=== PATIENT | female | born 1945 | race Caucasian/White ===

== ENCOUNTER 2016-11-25 14:21 | Inpatient (IN) | payer OTHER ==
[~2016-11-25] VITALS: Ht 165.1 cm; Wt 69.1 kg
[2016-11-25] MEDS ORDERED: OLAN1TAB9 PO (15:01)
[2016-11-25] MEDS ORDERED: SODIUM CHLORIDE 0.9% 500ML 500 ML IV STA ×2 (15:35→19:20)
[2016-11-25 16:28] LABS: BASO % 0.1 %; BASO ABS # 0.01 K/uL (0-0.2); COMPLETE YES; EOS % 0.1 %; HEMATOCRIT 45.4 % (37-47); IG% 0.3 %; LYMPH % 3.7 %; LYMPH ABS # 0.52 K/uL (1.2-3.4); MEAN CELL VOLUME 92.1 fL (80-100); MEAN CORPUSCULAR HEMOGLOBIN 30.2 pg (25-34); MEAN CORPUSCULAR HGB CONC 32.8 g/dl (32-36); MONO % 7.5 %; NEUT % 88.3 %; PLATELET COUNT 317 K/uL (130-400); RED BLOOD COUNT 4.93 M/uL (4.2-5.4); WHITE BLOOD COUNT 14.16 K/uL (4.8-10.8)
--- NOTE | 2016-11-25 16:38 | DIAGNOSTIC IMAGING REPORT ---
CT OF THE HEAD WITHOUT CONTRAST CLINICAL HISTORY: Altered mental status status post fall. COMPARISON STUDY: No previous studies for comparison. CT DOSE: 918.33 mGy.cm TECHNIQUE: Helical axial images of the head were obtained without IV contrast. Automated exposure control was utilized for the study. FINDINGS: No acute intracranial hemorrhage, midline shift or mass effect is present. Brain volume is normal for age. The exam is mildly compromised by motion artifact. Ventricular system is normal. The basilar cisterns are patent. There are no extra axial collections. There are no findings to suggest acute dural sinus thrombosis or acute territorial infarct. There are no calvarial fractures. IMPRESSION: 1. No acute intracranial findings. 2. No calvarial fracture. Electronically signed by: Kishore Sandy M.D. 11/25/2016 4:37 PM Dictated Date/Time: 11/25/2016 4:32 PM
[2016-11-25 16:47] LABS: ALT/SGPT 36 U/L (12-78); BLOOD UREA NITROGEN 22 mg/dl (7-18); BUN/CREATININE RATIO 32.4 (10-20); CARBON DIOXIDE 21 mmol/L (21-32); CHLORIDE 102 mmol/L (98-107); CREATININE 0.67 mg/dl (0.60-1.20); GLUCOSE 99 mg/dl (70-99); POTASSIUM 3.5 mmol/L (3.5-5.1); SODIUM 138 mmol/L (136-145)
[2016-11-25 16:52] LABS: ALB/GLOB RATIO 0.7 (0.9-2); ALKALINE PHOSPHATASE 278 U/L (45-117); AST/SGOT 24 U/L (15-37)
[2016-11-25 17:52] LABS: CALCIUM 9.3 mg/dl (8.5-10.1)
--- NOTE | 2016-11-25 18:25 | DIAGNOSTIC IMAGING REPORT ---
PELVIS 1 OR 2 VIEW ROUTINE, LEFT FEMUR 2 VIEWS ROUTINE CLINICAL HISTORY: L hip pain/LBP from fall 9d ago COMPARISON STUDY: None. FINDINGS: Nondisplaced fracture within the medial aspect of the left pubic bones. The sacrum appears intact. No additional fractures identified within the pelvis, hips, left femur. Mild osteoarthritis within the bilateral hips. Lucency overlying the intertrochanteric region of the left femur appears to represent a skin fold. IMPRESSION: Nondisplaced fracture within the medial left pubic bones. No definite fracture within the left femur. Electronically signed by: Tyler Rosario M.D. 11/25/2016 6:23 PM Dictated Date/Time: 11/25/2016 6:20 PM
--- NOTE | 2016-11-25 18:27 | DIAGNOSTIC IMAGING REPORT ---
LUMBAR SPINE 5 VIEWS HISTORY: Fall. Low back pain. COMPARISON: None. FINDINGS: There is no fracture. No subluxation. Mild disc space narrowing at L5-S1. Moderate facet degenerative changes within the lower lumbar spine. IMPRESSION: No fracture or subluxation within the lumbar spine. Electronically signed by: Tyler Rosario M.D. 11/25/2016 6:26 PM Dictated Date/Time: 11/25/2016 6:23 PM
--- NOTE | 2016-11-25 18:29 | DIAGNOSTIC IMAGING REPORT ---
CHEST ONE VIEW PORTABLE HISTORY: weakness w/ fall COMPARISON: None. FINDINGS: The lungs are clear. Cardiac silhouette is normal in size. No pleural effusions. No pneumothorax. IMPRESSION: No acute process. Electronically signed by: Tyler Rosario M.D. 11/25/2016 6:28 PM Dictated Date/Time: 11/25/2016 6:27 PM
--- NOTE | 2016-11-25 19:21 | EMERGENCY ROOM VISIT NOTE ---
ED Visit Note First contact with patient: 15:10 Patient was seen by our PA/APPLIANCE COUNSELOR. I was involved in the patient's care and did evaluate the patient myself. I was involved in the care throughout the ER stay. Patient presents after falling several days ago, she has a pelvic fracture which I suspect is nonsurgical. Orthopedics is being consulted. The patient will very likely require rehabilitation.
--- NOTE | 2016-11-25 19:44 | EMERGENCY ROOM VISIT NOTE ---
History First contact with patient: 15:10 Chief Complaint: FALL Stated Complaint: FALL History of Present Illness The patient is a 71 year old female who presents to the Emergency Room via BLS ambulance with complaints of left hip/thigh pain. The patient reports that she slipped and fell 9 days ago, landing on her left buttock. She did not have any significant pain from the first 3 days after the fall, but now reports significant pain with any attempted weightbearing. The patient lives alone. She does have a sludge control operator who visited her today and noticed that she seemed in significant distress. He sludge control operator reported that she seemed confused and was stuttering. The patient reports that she has been drinking fluids, and has eaten food that was close to her. She otherwise reports poor oral intake since the fall. The patient currently denies any chest pain, shortness of breath, neck pain or abdominal pain. Weightbearing worsens her discomfort to a 9 out of 10, and currently rates her discomfort a 5 out of 10 on my interview. Review of Systems HEENT: Denies dizziness, visual problems, hearing loss, tinnitus. Denies difficulty swallowing or oral lesions. PULMONARY: Denies cough, shortness of breath, sputum production or hemoptysis. CARDIOVASCULAR: Denies chest pain, palpitations, dyspnea on exertion, orthopnea or peripheral edema. GASTROINTESTINAL: Denies diarrhea, constipation, nausea, vomiting, or abdominal pain. GENITOURINARY: Denies dysuria, frequency, urgency or nocturia. NEUROLOGIC: Denies history of epilepsy, CVA, TIA or chronic headaches. MUSCULOSKELETAL: Denies history of joint tenderness/swelling. SKIN: Denies rashes or lesions. PSYCHIATRIC: Denies history of depression or mental illness. ENDOCRINE: Denies history of diabetes or thyroid disorders. Past Medical/Surgical History Medical Problems: (1) Mental Retardation Nos (2) Orofacial Dyskinesia (3) Psychosis Nos Surgical Problems: (1) No history of previous surgery Family History Unknown Social History Smoking Status: Former Smoker Alcohol Use: none Marital Status: Housing Status: lives alone Occupation Status: retired Current/Historical Medications Scheduled Olanzapine (Zyprexa), 5 MG PO HS Allergies Coded Allergies: No Known Allergies (Unverified , 11/25/16) Physical Exam Vital Signs Date Time Temp Pulse Resp B/P (MAP) Pulse Ox O2 Delivery O2 Flow Rate FiO2 11/25/16 20:01 105 17 145/90 99 Room Air 11/25/16 18:59 97 17 125/88 95 Room Air 11/25/16 17:19 97 17 114/81 99 Room Air 11/25/16 16:24 101 17 118/81 96 Room Air 11/25/16 14:42 37.3 105 17 121/86 96 Room Air Physical Exam CONSTITUTIONAL: Healthy and well nourished. Alert and oriented X 3 with positive affect. GCS 15. Patient does not appear in any acute distress. HEENT: Normocephalic, atraumatic. Pupils equal, round and reactive. Ears and nares are clear. No scleral icterus or conjunctival pallor. No evidence for previous epistaxis, subconjunctival hemorrhage, hemotympanum, raccoon's eyes or Lucero sign. OROPHARYNX: Mucous membranes are dry. NECK: Full active range of motion without discomfort. RESPIRATORY: Clear to auscultation bilaterally with no wheezing, crackles, rhonchi or stridor. CARDIOVASCULAR: Regular rate and rhythm with no murmurs, rubs or gallops. GASTROINTESTINAL: Bowel sounds present in all quadrants. Soft and nontender to palpation. MUSCULOSKELETAL: Examination shows minimal discomfort with internal or external rotation of the hip. Negative straight leg raise. She has mild tenderness to palpation through the lower lumbar spine. Pelvis stable with rock. Pedal pulses are intact. The patient has no additional tenderness to palpation through the ribs or thoracic spine. INTEGUMENTARY: No rash or other significant dermatologic conditions noted. HEMATOLOGIC: No ecchymosis or petechiae noted. NEUROLOGIC: No focal neurologic deficits noted. Medical Decision & Procedures ER Provider Diagnostic Interpretation: My interpretation of an ECG shows a sinus tachycardia of [address] elevation or other conduction abnormalities noted. My interpretation of pelvis and left femur x-rays shows a nondisplaced fracture of the medial pelvic bones, adjacent to the symphysis pubis. No other additional fractures are appreciated of the proximal femur or hip region. Chest x-ray and lumbar spine x-ray were also normal. Noncontrast CT of the head does not show any intracranial bleed, midline shift or mass effect. Radiologist reports were also reviewed. Laboratory Results 11/25/16 16:10 Red Blood Count 4.93, Mean Corpuscular Volume 92.1, Mean Corpuscular Hemoglobin 30.2, Mean Corpuscular Hemoglobin Concent 32.8, Mean Platelet Volume 10.0, Neutrophils (%) (Auto) 88.3, Lymphocytes (%) (Auto) 3.7, Monocytes (%) (Auto) 7.5, Eosinophils (%) (Auto) 0.1, Basophils (%) (Auto) 0.1, Neutrophils # (Auto) 12.51, Lymphocytes # (Auto) 0.52, Monocytes # (Auto) 1.06, Eosinophils # (Auto) 0.02, Basophils # (Auto) 0.01 11/25/16 16:10 Test 11/25/16 16:10 White Blood Count 14.16 K/uL (4.8-10.8) Red Blood Count 4.93 M/uL (4.2-5.4) Hemoglobin 14.9 g/dL (12.0-16.0) Hematocrit 45.4 % (37-47) Mean Corpuscular Volume 92.1 fL (80-100) Mean Corpuscular Hemoglobin 30.2 pg (25-34) Mean Corpuscular Hemoglobin Concent 32.8 g/dl (32-36) Platelet Count 317 K/uL (130-400) Mean Platelet Volume 10.0 fL (7.4-10.4) Neutrophils (%) (Auto) 88.3 % Lymphocytes (%) (Auto) 3.7 % Monocytes (%) (Auto) 7.5 % Eosinophils (%) (Auto) 0.1 % Basophils (%) (Auto) 0.1 % Neutrophils # (Auto) 12.51 K/uL (1.4-6.5) Lymphocytes # (Auto) 0.52 K/uL (1.2-3.4) Monocytes # (Auto) 1.06 K/uL (0.11-0.59) Eosinophils # (Auto) 0.02 K/uL (0-0.5) Basophils # (Auto) 0.01 K/uL (0-0.2) RDW Standard Deviation 45.1 fL (36.4-46.3) RDW Coefficient of Variation 13.5 % (11.5-14.5) Immature Granulocyte % (Auto) 0.3 % Immature Granulocyte # (Auto) 0.04 K/uL (0.00-0.02) Anion Gap 15.0 mmol/L (3-11) Est Creatinine Clear Calc Drug Dose 75.2 ml/min Estimated GFR () 102.5 Estimated GFR (Non- 88.4 BUN/Creatinine Ratio 32.4 (10-20) Calcium Level 9.3 mg/dl (8.5-10.1) Total Bilirubin 1.3 mg/dl (0.2-1) Aspartate Amino Transf (AST/SGOT) 24 U/L (15-37) Alanine Aminotransferase (ALT/SGPT) 36 U/L (12-78) Alkaline Phosphatase 278 U/L (45-117) Troponin I < 0.015 ng/ml (0-0.045) Total Protein 7.0 gm/dl (6.4-8.2) Albumin 2.9 gm/dl (3.4-5.0) Globulin 4.1 gm/dl (2.5-4.0) Albumin/Globulin Ratio 0.7 (0.9-2) The above labs were reviewed Medications Administered Medications (Trade) Dose Ordered Sig/Марина Route Start Time Stop Time Status Last Admin Dose Admin Sodium Chloride 500 ml @ 999 mls/hr Q31M STAT IV 11/25/16 15:35 11/25/16 16:05 DC 11/25/16 16:18 999 MLS/HR Sodium Chloride 500 ml @ 999 mls/hr Q31M STAT IV 11/25/16 19:20 11/25/16 19:50 DC 11/25/16 19:30 999 MLS/HR ED Course Patient history and physical exam were performed. Nurse's notes were reviewed. Vital signs were reviewed, showing a mild tachycardia of 105 bpm. The patient is otherwise afebrile and normotensive. O2 saturation is 96% on room air. The patient does not appear in any acute distress, and refused any analgesics while in the emergency department. IV access was established and labs were drawn. The patient was initially hydrated with a normal saline 500 mL bolus. Labs were reviewed to show a mild leukocytosis with left shift and bandemia. BUN is slightly elevated at 22 with a normal creatinine. Total bilirubin and alkaline phosphatase are also elevated with normal LFTs. Troponin is normal. The patient was unable to provide a urine sample, but denies any recent urinary symptoms or overt weakness. Noncontrast CT of the head, along with chest x-ray and lumbar spine x-ray were normal. X-rays of the pelvis and left femur confirms a nondisplaced medial pelvic fracture. Attempted trial ambulation was not successful. The patient was able to business intelligence manager one place, but could not ambulate without significant pain or problems with balance secondary to pain. The case was then further discussed with Dr. Thomas, ED attending physician, who agrees with current workup, and suggest orthopedic consultation and possible referral for rehabilitation. The case was also discussed with our [employer] Specialist who suggested [facility] rehabilitation. I also discussed the case with Dr. Aguilar, orthopedic surgeon on-call, who also reviewed x-rays and indicated that this is a nonsurgical fracture. His office would be happy to follow-up with the patient in one week. The patient was provided a regular diet tray and oral fluids while awaiting [facility] approval. The patient was administered an additional normal saline 500 mL bolus. The case was reviewed by the [facility] physician, Dr. Mandel, who refused transfer of care, recommending additional workup and CT of the pelvis/hip region. At this point, the case was discussed with Dr. Rachel, [facility] hospitalist, for further evaluation of the patient. Please see his dictation for further treatment and final disposition. Medical Decision This patient appears to have suffered a mechanical fall 9 days ago, and now has significant difficulty with ambulation secondary to left hip pain. Her x-rays today shows a nondisplaced left pelvic fracture. Remaining imaging studies today are normal, and not suggestive of acute lumbar or left hip fracture. Additional studies today are not suggestive of cardiopulmonary etiology. The patient denies any other injuries from her fall. Noncontrast CT of the head does not show any evidence for intracranial bleed. Impression Primary Impression: Fracture of left pelvis Additional Impression: Fall in home Departure Information Referrals No Doctor, Assigned (PCP) Patient Instructions [facility] Problem Qualifiers Primary Impression: Fracture of left pelvis Encounter type: initial encounter Pelvic bone location: pubis Sublocation of pubis: other portion of pubis Fracture type: closed Qualified Codes: S32.592A - Other specified fracture of left pubis, initial encounter for closed fracture Additional Impression: Fall in home Encounter type: initial encounter Qualified Codes: W19.XXXA - Unspecified fall, initial encounter; Y92.099 - Unspecified place in other non-institutional residence as the place of occurrence of the external cause
--- NOTE | 2016-11-25 21:59 | History and Physical ---
History & Physical Date & Time of Service: Nov 25, 2016 at 21:59 Chief Complaint: FALL Primary Care Physician: No Doctor, Assigned History of Present Illness Source: patient The patient is a 71-year-old female who presents to the emergency Department via BLS after reporting slipping and falling at home 9 days prior to arrival, in which she landed on her left buttock and then 3 days later developed the first onset of left groin pain, which has continually worsened since that time. Any time she attempts to bear weight she has severe pain and is unable to walk. The patient lives alone, and a textile knitter who visited her today advised she go to the emergency department for assessment. The patient reports poor oral intake since the fall due to having no appetite. Social History Smoking Status: Former Smoker Smokeless Tobacco Use: No Alcohol Use: none Drug Use: none Marital Status: Housing status: lives alone Occupational Status: retired Multi-Drug Resistant Organisms History of MDRO: No Allergies Coded Allergies: No Known Allergies (Unverified , 11/25/16) Home Medications Scheduled Olanzapine (Zyprexa), 5 MG PO HS Review of Systems The patient denies chest pain, palpitations, shortness of breath, cough, lower extremity swelling, vision change, hearing change, sore throat, fevers, chills, sweats, weight change, fatigue, nausea, vomiting, abdominal pain, blood in urine or stool, dysuria, urinary frequency or urgency, lightheadedness, dizziness, headache, memory loss, rash, abnormal bruising or bleeding, generalized weakness, numbness or tingling in arms or legs, arthralgias or myalgias, back or neck pain, night sweats. The review of systems is otherwise negative other than for that already noted above, and at least 10 systems have been reviewed. Physical Exam Vital Signs Date Time Temp Pulse Resp B/P (MAP) Pulse Ox O2 Delivery O2 Flow Rate FiO2 11/25/16 21:42 101 17 138/88 99 Room Air 11/25/16 20:01 105 17 145/90 99 Room Air 11/25/16 18:59 97 17 125/88 95 Room Air 11/25/16 17:19 97 17 114/81 99 Room Air 11/25/16 16:24 101 17 118/81 96 Room Air 11/25/16 14:42 37.3 105 17 121/86 96 Room Air The patient is awake, well-developed and adequately nourished, alert and oriented 3, normocephalic and atraumatic, lying in bed and in no acute distress. HEENT--PERRL, EOMI, mucous membranes and oropharynx dry. Neck--supple, no JVD or bruits, thyroid normal, trachea midline, no adenopathy. Heart--normal S1 and S2, no extra beats, no murmurs, rubs or gallops. Lungs--clear bilaterally with good air movement, no respiratory distress, no accessory muscle use. Abdomen--normal bowel sounds and soft, nontender and nondistended, no hernias or masses, no organomegaly. Extremities--no cyanosis, clubbing or edema. There are good distal pulses b/l. Dermatologic--normal skin turgor, normal color, warm and dry, no abnormal lymph nodes, no rash. Neurologic--cranial nerves II through XII grossly intact, motor and sensory examination normal. Rheumatologic--pain with decreased range of motion left groin and hip. Psychiatric--normal affect. Diagnostics Laboratory Results Results Past 24 Hours Test 11/25/16 16:10 Range/Units White Blood Count 14.16 4.8-10.8 K/uL Red Blood Count 4.93 4.2-5.4 M/uL Hemoglobin 14.9 12.0-16.0 g/dL Hematocrit 45.4 37-47 % Mean Corpuscular Volume 92.1 80-100 fL Mean Corpuscular Hemoglobin 30.2 25-34 pg Mean Corpuscular Hemoglobin Concent 32.8 32-36 g/dl Platelet Count 317 130-400 K/uL Mean Platelet Volume 10.0 7.4-10.4 fL Neutrophils (%) (Auto) 88.3 % Lymphocytes (%) (Auto) 3.7 % Monocytes (%) (Auto) 7.5 % Eosinophils (%) (Auto) 0.1 % Basophils (%) (Auto) 0.1 % Neutrophils # (Auto) 12.51 1.4-6.5 K/uL Lymphocytes # (Auto) 0.52 1.2-3.4 K/uL Monocytes # (Auto) 1.06 0.11-0.59 K/uL Eosinophils # (Auto) 0.02 0-0.5 K/uL Basophils # (Auto) 0.01 0-0.2 K/uL RDW Standard Deviation 45.1 36.4-46.3 fL RDW Coefficient of Variation 13.5 11.5-14.5 % Immature Granulocyte % (Auto) 0.3 % Immature Granulocyte # (Auto) 0.04 0.00-0.02 K/uL Sodium Level 138 136-145 mmol/L Potassium Level 3.5 3.5-5.1 mmol/L Chloride Level 102 98-107 mmol/L Carbon Dioxide Level 21 21-32 mmol/L Anion Gap 15.0 3-11 mmol/L Blood Urea Nitrogen 22 7-18 mg/dl Creatinine 0.67 0.60-1.20 mg/dl Est Creatinine Clear Calc Drug Dose 75.2 ml/min Estimated GFR () 102.5 Estimated GFR (Non- 88.4 BUN/Creatinine Ratio 32.4 10-20 Random Glucose 99 70-99 mg/dl Calcium Level 9.3 8.5-10.1 mg/dl Total Bilirubin 1.3 0.2-1 mg/dl Aspartate Amino Transf (AST/SGOT) 24 15-37 U/L Alanine Aminotransferase (ALT/SGPT) 36 12-78 U/L Alkaline Phosphatase 278 45-117 U/L Troponin I < 0.015 0-0.045 ng/ml Total Protein 7.0 6.4-8.2 gm/dl Albumin 2.9 3.4-5.0 gm/dl Globulin 4.1 2.5-4.0 gm/dl Albumin/Globulin Ratio 0.7 0.9-2 Diagnostic Radiology Patient Name: PHILLIP FERRER Unit Number: [id number] Dictated: 11/25/161819 Transcribed: 11/25/161819 [facility] Printed Date/Time: [~ rep prt dt]/[~ rep prt tm] [~ rep ct labl] - [~ rep ct ivnm] [facility] [place] [address] Dictated: 11/25/161819 Transcribed: 11/25/161819 [facility] Printed Date/Time: [~ rep prt dt]/[~ rep prt tm] [~ rep ct labl] - [~ rep ct ivnm] [~ rep ct add3]] PELVIS 1 OR 2 VIEW ROUTINE, LEFT FEMUR 2 VIEWS ROUTINE CLINICAL HISTORY: L hip pain/LBP from fall 9d ago COMPARISON STUDY: None. FINDINGS: Nondisplaced fracture within the medial aspect of the left pubic bones. The sacrum appears intact. No additional fractures identified within the pelvis, hips, left femur. Mild osteoarthritis within the bilateral hips. Lucency overlying the intertrochanteric region of the left femur appears to represent a skin fold. IMPRESSION: Nondisplaced fracture within the medial left pubic bones. No definite fracture within the left femur. Electronically signed by: Tyler Rosario M.D. 11/25/2016 6:23 PM Dictated Date/Time: 11/25/2016 6:20 PM The status of this report is Signed. Draft = Not yet reviewed or approved by Radiologist. Signed = Reviewed and approved by Radiologist. <AttendingPhy></AttendingPhy> <FamilyPhy>No Doctor, Assigned</FamilyPhy> < PrimaryPhy>No Doctor, Assigned</PrimaryPhy> <UnitNumber>[id number]</UnitNumber> <VisitNumber>[id number]</VisitNumber> <PatientName>NABILPHILLIP HERNANDEZ</PatientName > <DateOfBirth>1945</DateOfBirth> <Location>[facility]</Location> <ServiceDate> 11/25/16</ServiceDate> <MNE>ESINDI</MNE> <OrderingPhy>Maurice Mishra</ OrderingPhy> <OrderingPhyMNE>f rep ord dr kamara</OrderingPhyMNE> <DictatingPhyMNE> f rep dict dr kamara</DictatingPhyMNE> <CCListMNE>f rep ct mne</CCListMNE> < AdmittingPhyMNE>f pt admit dr kamara</AdmittingPhyMNE> <AttendingPhyMNE>f pt attend dr kamara</AttendingPhyMNE> <ConsultingPhyMNE>f pt consult dr kamara</ConsultingPhyMNE> <FamilyPhyMNE>f pt fam dr kamara</FamilyPhyMNE> <OtherPhyMNE>f pt other dr kamara</OtherPhyMNE> < PrimaryPhyMNE>f pt prim care dr kamara</PrimaryPhyMNE> <ReferringPhyMNE>f pt referring dr kamara</ReferringPhyMNE> Patient Name: PHILLIP FERRER Unit Number: [id number] Dictated: 11/25/161822 Transcribed: 11/25/161822 [facility] Printed Date/Time: [~ rep prt dt]/[~ rep prt tm] [~ rep ct labl] - [~ rep ct ivnm] [facility] [place] [address] Dictated: 11/25/161822 Transcribed: 11/25/161822 [facility] Printed Date/Time: [~ rep prt dt]/[~ rep prt tm] [~ rep ct labl] - [~ rep ct ivnm] [~ rep ct add3]] LUMBAR SPINE 5 VIEWS HISTORY: Fall. Low back pain. COMPARISON: None. FINDINGS: There is no fracture. No subluxation. Mild disc space narrowing at L5-S1. Moderate facet degenerative changes within the lower lumbar spine. IMPRESSION: No fracture or subluxation within the lumbar spine. Electronically signed by: Tyler Rosario M.D. 11/25/2016 6:26 PM Dictated Date/Time: 11/25/2016 6:23 PM The status of this report is Signed. Draft = Not yet reviewed or approved by Radiologist. Signed = Reviewed and approved by Radiologist. <AttendingPhy></AttendingPhy> <FamilyPhy>No Doctor, Assigned</FamilyPhy> < PrimaryPhy>No Doctor, Assigned</PrimaryPhy> <UnitNumber>[id number]</UnitNumber> <VisitNumber>[id number]</VisitNumber> <PatientName>PHILLIP FERRER</PatientName > <DateOfBirth>1945</DateOfBirth> <Location>[facility]</Location> <ServiceDate> 11/25/16</ServiceDate> <MNE>ESINDI</MNE> <OrderingPhy>Maurice Mishra</ OrderingPhy> <OrderingPhyMNE>f rep ord dr kamara</OrderingPhyMNE> <DictatingPhyMNE> f rep dict dr kamara</DictatingPhyMNE> <CCListMNE>f rep ct mne</CCListMNE> < AdmittingPhyMNE>f pt admit dr kamara</AdmittingPhyMNE> <AttendingPhyMNE>f pt attend dr kamara</AttendingPhyMNE> <ConsultingPhyMNE>f pt consult dr kamara</ConsultingPhyMNE> <FamilyPhyMNE>f pt fam dr kamara</FamilyPhyMNE> <OtherPhyMNE>f pt other dr kamara</OtherPhyMNE> < PrimaryPhyMNE>f pt prim care dr kamara</PrimaryPhyMNE> <ReferringPhyMNE>f pt referring dr kamara</ReferringPhyMNE> Patient Name: PHILLIP FERRER Unit Number: [id number] Dictated: 11/25/161631 Transcribed: 11/25/161631 [facility] Printed Date/Time: [~ rep prt dt]/[~ rep prt tm] [~ rep ct labl] - [~ rep ct ivnm] [facility] Radiology Department [place], [place] [id number] Dictated: 11/25/161631 Transcribed: 11/25/161631 [facility] Printed Date/Time: [~ rep prt dt]/[~ rep prt tm] [~ rep ct labl] - [~ rep ct ivnm] [~ rep ct add3]] CT OF THE HEAD WITHOUT CONTRAST CLINICAL HISTORY: Altered mental status status post fall. COMPARISON STUDY: No previous studies for comparison. CT DOSE: 918.33 mGy.cm TECHNIQUE: Helical axial images of the head were obtained without IV contrast. Automated exposure control was utilized for the study. FINDINGS: No acute intracranial hemorrhage, midline shift or mass effect is present. Brain volume is normal for age. The exam is mildly compromised by motion artifact. Ventricular system is normal. The basilar cisterns are patent. There are no extra axial collections. There are no findings to suggest acute dural sinus thrombosis or acute territorial infarct. There are no calvarial fractures. IMPRESSION: 1. No acute intracranial findings. 2. No calvarial fracture. Electronically signed by: Kishore Sandy M.D. 11/25/2016 4:37 PM Dictated Date/Time: 11/25/2016 4:32 PM The status of this report is Signed. Draft = Not yet reviewed or approved by Radiologist. Signed = Reviewed and approved by Radiologist. <AttendingPhy></AttendingPhy> <FamilyPhy>No Doctor, Assigned</FamilyPhy> < PrimaryPhy>No Doctor, Assigned</PrimaryPhy> <UnitNumber>[id number]</UnitNumber> <VisitNumber>[id number]</VisitNumber> <PatientName>PHILLIP FERRER</PatientName > <DateOfBirth>1945</DateOfBirth> <Location>[facility]</Location> <ServiceDate> 11/25/16</ServiceDate> <MNE>ESINDI</MNE> <OrderingPhy>Maurice Mishra</ OrderingPhy> <OrderingPhyMNE>f rep ord dr kamara</OrderingPhyMNE> <DictatingPhyMNE> f rep dict dr kamara</DictatingPhyMNE> <CCListMNE>f rep ct mne</CCListMNE> < AdmittingPhyMNE>f pt admit dr kamara</AdmittingPhyMNE> <AttendingPhyMNE>f pt attend dr kamara</AttendingPhyMNE> <ConsultingPhyMNE>f pt consult dr kamara</ConsultingPhyMNE> <FamilyPhyMNE>f pt fam dr kamara</FamilyPhyMNE> <OtherPhyMNE>f pt other dr kamara</OtherPhyMNE> < PrimaryPhyMNE>f pt prim care dr kamara</PrimaryPhyMNE> <ReferringPhyMNE>f pt referring dr kamara</ReferringPhyMNE> Patient Name: PHILLIP FERRER Unit Number: [id number] Dictated: 11/25/161819 Transcribed: 11/25/161819 [facility] Printed Date/Time: [~ rep prt dt]/[~ rep prt tm] [~ rep ct labl] - [~ rep ct ivnm] [facility] [place] [address] Dictated: 11/25/161819 Transcribed: 11/25/161819 [facility] Printed Date/Time: [~ rep prt dt]/[~ rep prt tm] [~ rep ct labl] - [~ rep ct ivnm] [~ rep ct add3]] PELVIS 1 OR 2 VIEW ROUTINE, LEFT FEMUR 2 VIEWS ROUTINE CLINICAL HISTORY: L hip pain/LBP from fall 9d ago COMPARISON STUDY: None. FINDINGS: Nondisplaced fracture within the medial aspect of the left pubic bones. The sacrum appears intact. No additional fractures identified within the pelvis, hips, left femur. Mild osteoarthritis within the bilateral hips. Lucency overlying the intertrochanteric region of the left femur appears to represent a skin fold. IMPRESSION: Nondisplaced fracture within the medial left pubic bones. No definite fracture within the left femur. Electronically signed by: Tyler Rosario M.D. 11/25/2016 6:23 PM Dictated Date/Time: 11/25/2016 6:20 PM The status of this report is Signed. Draft = Not yet reviewed or approved by Radiologist. Signed = Reviewed and approved by Radiologist. <AttendingPhy></AttendingPhy> <FamilyPhy>No Doctor, Assigned</FamilyPhy> < PrimaryPhy>No Doctor, Assigned</PrimaryPhy> <UnitNumber>[id number]</UnitNumber> <VisitNumber>[id number]</VisitNumber> <PatientName>MERY FERRERYumiko HERNANDEZ</PatientName > <DateOfBirth>1945</DateOfBirth> <Location>[facility]</Location> <ServiceDate> 11/25/16</ServiceDate> <MNE>ESINDI</MNE> <OrderingPhy>Maurice Mishra</ OrderingPhy> <OrderingPhyMNE>f rep ord dr kamara</OrderingPhyMNE> <DictatingPhyMNE> f rep dict dr kamara</DictatingPhyMNE> <CCListMNE>f rep ct mne</CCListMNE> < AdmittingPhyMNE>f pt admit dr kamara</AdmittingPhyMNE> <AttendingPhyMNE>f pt attend dr kamara</AttendingPhyMNE> <ConsultingPhyMNE>f pt consult dr kamara</ConsultingPhyMNE> <FamilyPhyMNE>f pt fam dr kamara</FamilyPhyMNE> <OtherPhyMNE>f pt other dr kamara</OtherPhyMNE> < PrimaryPhyMNE>f pt prim care dr kamara</PrimaryPhyMNE> <ReferringPhyMNE>f pt referring dr kamara</ReferringPhyMNE> Patient Name: PHILLIP FERRER Unit Number: [id number] Dictated: 11/25/161826 Transcribed: 11/25/161826 [facility] Printed Date/Time: [~ rep prt dt]/[~ rep prt tm] [~ rep ct labl] - [~ rep ct ivnm] [facility] [place] [address] Dictated: 11/25/161826 Transcribed: 11/25/161826 [facility] Printed Date/Time: [~ rep prt dt]/[~ rep prt tm] [~ rep ct labl] - [~ rep ct ivnm] CHEST ONE VIEW PORTABLE HISTORY: weakness w/ fall COMPARISON: None. FINDINGS: The lungs are clear. Cardiac silhouette is normal in size. No pleural effusions. No pneumothorax. IMPRESSION: No acute process. Electronically signed by: Tyler Rosario M.D. 11/25/2016 6:28 PM Dictated Date/Time: 11/25/2016 6:27 PM The status of this report is Signed. Draft = Not yet reviewed or approved by Radiologist. Signed = Reviewed and approved by Radiologist. <AttendingPhy></AttendingPhy> <FamilyPhy>No Doctor, Assigned</FamilyPhy> < PrimaryPhy>No Doctor, Assigned</PrimaryPhy> <UnitNumber>[id number]</UnitNumber> <VisitNumber>[id number]</VisitNumber> <PatientName>PHILLIP FERRER</PatientName > <DateOfBirth>1945</DateOfBirth> <Location>[facility]</Location> <ServiceDate> 11/25/16</ServiceDate> <MNE>ESINDI</MNE> <OrderingPhy>Maurice Mishra</ OrderingPhy> <OrderingPhyMNE>f rep ord dr kamara</OrderingPhyMNE> <DictatingPhyMNE> f rep dict dr kamara</DictatingPhyMNE> <CCListMNE>f rep ct mne</CCListMNE> < AdmittingPhyMNE>f pt admit dr kamara</AdmittingPhyMNE> <AttendingPhyMNE>f pt attend dr kamara</AttendingPhyMNE> <ConsultingPhyMNE>f pt consult dr kamara</ConsultingPhyMNE> <FamilyPhyMNE>f pt fam dr kamara</FamilyPhyMNE> <OtherPhyMNE>f pt other dr kamara</OtherPhyMNE> < PrimaryPhyMNE>f pt prim care dr kamara</PrimaryPhyMNE> <ReferringPhyMNE>f pt referring dr kamara</ReferringPhyMNE> EKG EKG shows sinus tachycardia at 103 bpm, no acute ST-T changes, and no change compared to 06/22/1999. Impression Assessment and Plan Left pelvic fracture after falling in home with inability to bear weight due to pain--the patient will be admitted to the medical surgical floor. Will work on pain management with Tylenol, tramadol, and morphine IV when necessary We'll consult PT, OT and psychosocial rehabilitation counselor, as patient will likely benefit from an inpatient rehabilitation stay. Place on normal saline with potassium chloride 20 mEq at 100 mils per hour. 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 Level of Care Med/Surg Advanced Directives Existing Advance Directive: No Existing Living Will: No Existing Power of Exhibit Designer: No Resuscitation Status FULL RESUSCITATION VTE Prophylaxis VTE Risk Assessment Done? Y/N: Yes Risk Level: Moderate Given or contraindicated: SCD's
[2016-11-25] MEDS ORDERED: MoRPHine SULFATE 2 MG/ML CARP IV PRN (22:00)
[2016-11-25] MEDS ORDERED: TRAMADOL HCL 50 MG TAB PO PRN (22:00)
[2016-11-25] MEDS ORDERED: ONDANSETRON INJ 2 MG/ML 2 ML VIAL IV PRN (22:00)
[2016-11-25] MEDS ORDERED: MoRPHine SULFATE 4 MG/ML 1 ML CARP\\VIAL IV PRN (22:00)
[2016-11-25] MEDS ORDERED: ACETAMINOPHEN 325 MG TAB PO PRN (22:00)
[2016-11-25] MEDS ORDERED: ZOLPIDEM TARTRATE 5 MG TAB PO PRN (22:00)
[2016-11-25 23:15] VITALS: BP 142/70; PULSE 97; TEMP 36.9; O2SAT 96; Ht 165.1 cm; Wt 69.1 kg
[2016-11-25 23:20] VITALS: BP 142/70; PULSE 98; TEMP 36.9; O2SAT 96
[2016-11-25] MEDS: TRAMADOL HCL 50 MG TAB PO PRN (23:29)
[2016-11-25] MEDS: NSS + 20MEQ KCL 1000ML 1,000 ML IV SCH (23:52)
[2016-11-26 07:56] VITALS: BP 110/74; PULSE 90; TEMP 36.6; O2SAT 93
[2016-11-26 08:26] VITALS: O2SAT 93
[2016-11-26] MEDS: NSS + 20MEQ KCL 1000ML 1,000 ML IV SCH ×2 (09:16→18:55)
[2016-11-26] MEDS: TRAMADOL HCL 50 MG TAB PO PRN (09:16)
[2016-11-26] MEDS: ACETAMINOPHEN 500 MG TAB PO SCH ×2 (12:34→21:25)
[2016-11-26] MEDS: SENNA 8.6 MG TAB PO SCH (12:34)
[2016-11-26 14:55] VITALS: BP 118/78; PULSE 90; TEMP 36.7; O2SAT 94
--- NOTE | 2016-11-26 15:53 | Progress Note ---
Subjective Date of Service: Nov 26, 2016. Subjective pt has pelvic pain mostly with movement and sitting, cannot return to home due to pain, no other issues Problem List Medical Problems: (1) Fall in home Status: Acute (2) Fracture of left pelvis Status: Acute Review of Systems Constitutional: No fever, No chills Respiratory: No cough, No shortness of breath Cardiac: No chest pain, No edema Abdomen: No pain, No nausea, No vomiting, No diarrhea Musculoskeletal: + problem reported (pain in pelvis with sitting and movement in perianal area) Female : No dysuria, No urinary frequency Psychiatric: + depression symptoms, + anhedonism Objective Vital Signs Date Time Temp Pulse Resp B/P (MAP) Pulse Ox O2 Delivery O2 Flow Rate FiO2 11/26/16 08:26 93 Room Air 11/26/16 07:56 36.6 90 17 110/74 (86) 93 Room Air 11/26/16 07:20 Room Air 11/25/16 23:20 36.9 98 18 142/70 (94) 96 Room Air 11/25/16 23:15 36.9 97 16 142/70 96 Room Air 11/25/16 23:13 37.3 101 17 141/88 99 11/25/16 22:48 101 17 141/88 99 Room Air 11/25/16 21:42 101 17 138/88 99 Room Air 11/25/16 20:01 105 17 145/90 99 Room Air 11/25/16 18:59 97 17 125/88 95 Room Air 11/25/16 17:19 97 17 114/81 99 Room Air 11/25/16 16:24 101 17 118/81 96 Room Air 11/25/16 14:42 37.3 105 17 121/86 96 Room Air Physical Exam General Appearance: WD/WN, + moderate distress Neck: supple, no JVD Respiratory/Chest: chest non-tender, lungs clear, normal breath sounds Cardiovascular: regular rate, rhythm, no murmur Abdomen: normal bowel sounds, non tender, soft Extremities: no pedal edema, no calf tenderness Laboratory Results Last 24 Hours Test 11/25/16 16:10 White Blood Count 14.16 K/uL Red Blood Count 4.93 M/uL Hemoglobin 14.9 g/dL Hematocrit 45.4 % Mean Corpuscular Volume 92.1 fL Mean Corpuscular Hemoglobin 30.2 pg Mean Corpuscular Hemoglobin Concent 32.8 g/dl Platelet Count 317 K/uL Mean Platelet Volume 10.0 fL Neutrophils (%) (Auto) 88.3 % Lymphocytes (%) (Auto) 3.7 % Monocytes (%) (Auto) 7.5 % Eosinophils (%) (Auto) 0.1 % Basophils (%) (Auto) 0.1 % Neutrophils # (Auto) 12.51 K/uL Lymphocytes # (Auto) 0.52 K/uL Monocytes # (Auto) 1.06 K/uL Eosinophils # (Auto) 0.02 K/uL Basophils # (Auto) 0.01 K/uL RDW Standard Deviation 45.1 fL RDW Coefficient of Variation 13.5 % Immature Granulocyte % (Auto) 0.3 % Immature Granulocyte # (Auto) 0.04 K/uL Sodium Level 138 mmol/L Potassium Level 3.5 mmol/L Chloride Level 102 mmol/L Carbon Dioxide Level 21 mmol/L Anion Gap 15.0 mmol/L Blood Urea Nitrogen 22 mg/dl Creatinine 0.67 mg/dl Est Creatinine Clear Calc Drug Dose 75.2 ml/min Estimated GFR () 102.5 Estimated GFR (Non- 88.4 BUN/Creatinine Ratio 32.4 Random Glucose 99 mg/dl Calcium Level 9.3 mg/dl Total Bilirubin 1.3 mg/dl Aspartate Amino Transf (AST/SGOT) 24 U/L Alanine Aminotransferase (ALT/SGPT) 36 U/L Alkaline Phosphatase 278 U/L Troponin I < 0.015 ng/ml Total Protein 7.0 gm/dl Albumin 2.9 gm/dl Globulin 4.1 gm/dl Albumin/Globulin Ratio 0.7 Hepatitis C Antibody Screen NEG Assessment and Plan 71 F with fall and left pelvic fracture poa, cannot ambularte due to pain Left pelvic fracture after falling in home with inability to bear weight due to pain- pain management with Tylenol, tramadol, and morphine, consult PT, OT and social work faculty member,evaluation for inpatient rehabilitation stay. Mental retardation/psychosis - Zyprexa 5 mg hs to control behavorial symptoms
[2016-11-26 16:00] VITALS: O2SAT 94
[2016-11-26] MEDS: OLANZAPINE 5 MG TAB PO SCH (21:25)
[2016-11-26 23:24] VITALS: BP 96/64; PULSE 82; TEMP 36.6; O2SAT 98
[2016-11-27] MEDS: NSS + 20MEQ KCL 1000ML 1,000 ML IV SCH ×2 (04:50→15:32)
[2016-11-27 07:10] VITALS: BP 107/67; PULSE 85; TEMP 36.4; O2SAT 99
[2016-11-27] MEDS: SENNA 8.6 MG TAB PO SCH (09:45)
[2016-11-27] MEDS: ACETAMINOPHEN 500 MG TAB PO SCH ×2 (09:46→20:35)
--- NOTE | 2016-11-27 14:55 | Progress Note ---
Subjective Date of Service: Nov 27, 2016. Subjective pt is still fairly painful to move, is participating in PT. no other issues Problem List Medical Problems: (1) Fall in home Status: Acute (2) Fracture of left pelvis Status: Acute Review of Systems Constitutional: No fever, No chills Respiratory: No cough, No shortness of breath, No dyspnea on exertion Cardiac: No chest pain, No PND, No edema Abdomen: No pain, No nausea Musculoskeletal: + joint pain, + muscle pain Objective Vital Signs Date Time Temp Pulse Resp B/P (MAP) Pulse Ox O2 Delivery O2 Flow Rate FiO2 11/27/16 10:24 Room Air 11/27/16 07:50 Room Air 11/27/16 07:10 36.4 85 16 107/67 (80) 99 Room Air 11/27/16 00:00 Room Air 11/26/16 23:24 36.6 82 14 96/64 (75) 98 Room Air 11/26/16 16:00 94 Room Air 11/26/16 14:55 36.7 90 17 118/78 (91) 94 Room Air Physical Exam General Appearance: WD/WN, + mild distress Eyes: PERRL, EOMI Neck: supple, no JVD Respiratory/Chest: chest non-tender, lungs clear, normal breath sounds Cardiovascular: regular rate, rhythm, no murmur Abdomen: normal bowel sounds, non tender, soft Extremities: no pedal edema, no calf tenderness Assessment and Plan 71 F with fall and left pelvic fracture poa, cannot ambularte due to pain Left pelvic fracture after falling in home with inability to bear weight due to pain- pain management with Tylenol, tramadol, and morphine, consult PT, OT and clinical social worker,evaluation for inpatient rehabilitation stay. may be full weight bearing as tolerated, and will add celebrex for augmented pain control Mental retardation/psychosis - Zyprexa 5 mg hs to control behavorial symptoms
[2016-11-27 15:09] VITALS: BP 109/70; PULSE 87; TEMP 37; O2SAT 98
[2016-11-27 16:00] VITALS: O2SAT 98
[2016-11-27] MEDS: OLANZAPINE 5 MG TAB PO SCH (20:36)
[2016-11-27] MEDS: CeleBREX 100 MG CAP PO SCH (20:37)
[2016-11-27 22:48] VITALS: BP 129/74; PULSE 76; TEMP 36.9; O2SAT 97
[2016-11-28] MEDS: NSS + 20MEQ KCL 1000ML 1,000 ML IV SCH (00:44)
[2016-11-28 07:36] VITALS: BP 117/77; PULSE 72; TEMP 36.9; O2SAT 95
[2016-11-28] MEDS: CeleBREX 100 MG CAP PO SCH ×2 (08:53→21:16)
[2016-11-28] MEDS: SENNA 8.6 MG TAB PO SCH (08:55)
[2016-11-28] MEDS: ACETAMINOPHEN 500 MG TAB PO SCH ×2 (08:57→21:16)
[2016-11-28] MEDS: TRAMADOL HCL 50 MG TAB PO PRN ×2 (09:42→16:21)
[2016-11-28 11:32] LABS: CREATININE 0.5 mg/dl (0.60-1.20); POTASSIUM 3.7 mmol/L (3.5-5.1)
[2016-11-28 11:43] LABS: ALB/GLOB RATIO 0.7 (0.9-2); THYROID STIMULATING HORMONE 0.921 uIu/ml (0.300-4.500)
[2016-11-28] MEDS ORDERED: SNK PO (11:52)
[2016-11-28] MEDS ORDERED: ACET-24 PO (11:52)
[2016-11-28] MEDS ORDERED: ULT50X PO (11:52)
[2016-11-28] MEDS ORDERED: CLB100 PO (11:52)
--- NOTE | 2016-11-28 11:58 | Discharge Instructions ---
Discharge Instructions Date of Service Nov 28, 2016. Admission Reason for Admission: Fall In Home, Fracture Of Left Pelvis Discharge Discharge Diagnosis / Problem: L Pelvic Fracture from Fall Discharge Goals Goal(s): Decrease discomfort, Improve function, Increase independence Activity Recommendations Activity Level: Assistance Required Therapies: Physical Therapy, Weight Bearing Status (Weight bearing as tolerated ), Occupational Therapy Weightbearing Status: Left weightbearing (as tolerated), Right weightbearing ( as tolerated) Lifting Limitations: gradually increase as tolerated Exercise/Sports Limitations: as tolerated Shower/Bathe: no limitations . Additional Information Patient informed of condition: Yes Advance Directives: No DNR: No Level of Care: Acute Rehab Communicable Disease: No Prognosis: Improving Linares Catheter: No Instructions / Follow-Up Instructions / Follow-Up Left Pelvic Fx 07/14 Fall: - Pelvic XR - IMPRESSION: Nondisplaced fracture within the medial left pubic bones. No definite fracture within the left femur. - Pain controlled with Celebrex, Tylenol, and Tramadol -- 1-2 tablets of Tramadol Q4H PRN - has been utilizing 2 tablets Urinary Retention: - Patient noted to hold urine and varying bladder scan results and Linares was placed. Linares D/C'd on 11/28 - Started Senna for constipation as may be contributing to retention. - In regards to urinary retention. We will obtain UA and Cx to rule out UTI. She reports that she normally only goes 3-4 times a day and sometimes 1-2 times a day. While hospitalized she reports that she doesn't have the sensation to void even when scanned for urine. Can possibly straight cath 2-[address] times [address] day or place Linares catheter. She will probably need outpatient Urology consultation. Given the non-displaced nature of the pelvic fracture it is unlikely the cause of urinary retention. Vitamin D Deficiency: - Mildly decreased and will start supplementation Intellectual Disability/Psychosis: - Zyprexa 5 mg HS for behavioral symptoms Current Hospital Diet Patient's current hospital diet: Regular Diet Discharge Diet Recommended Diet: Regular Diet Pending Studies Studies pending at discharge: no Physician Orders On Transfer POLST Discussion: Not Applicable Medical Emergencies . Who to Call and When: Medical Emergencies: If at any time you feel your situation is an emergency, please call 911 immediately. . Non-Emergent Contact Non-Emergency issues call your: Primary Care Provider Call Non-Emergent contact if: you have a fever, your pain is concerning you, you have any medication questions . . "Provider Documentation" section prepared by Carlota Andrews. Attending Attestation: Pt seen/examined and care plan d/w CELESTINO Andrews on day of discharge. I agree w/ her discharge instructions as outlined. Ramez Garcia MD . Core Measure Problem Core Measures: None
[2016-11-28] MEDS ORDERED: CALCTAB7 PO (12:01)
[2016-11-28] MEDS ORDERED: VTMD1000 PO (12:04)
[2016-11-28 15:03] VITALS: BP 107/68; PULSE 72; TEMP 37; O2SAT 95
--- NOTE | 2016-11-28 17:10 | Hospitalist Progress Note ---
Hospitalist Progress Note Date of Service Nov 28, 2016. (Carlota Andrews PA-C) Subjective Pt evaluation today including: conversation w/ patient, physical exam, chart review, lab review, review of studies, review of inpatient medication list Patient seen and evaluated. Participating in PT this AM. She was up ambulating the hallways. Reporting significant pain in the pelvic region and looks mildly uncomfortable sitting in chair. Corona catheter was D/C'd this AM and awaiting voiding but bladder scan did not reveal significant retention at this point. She states she hasn't moved her bowel but does not feel constipated. Constitutional: No fever, No chills Respiratory: No shortness of breath Cardiovascular: No chest pain Abdomen: No pain, No nausea, No vomiting, No diarrhea, No constipation Musculoskeletal: + joint pain, No swelling, No calf pain Skin: No rash, No new/changing skin lesions (Carlota Andrews, KULDIPC) Medications Current Inpatient Medications Medications (Trade) Dose Ordered Sig/Марина Route Start Time Stop Time Status Last Admin Dose Admin Zolpidem Tartrate (Ambien Tab) 5 mg HSZ PRN PO 11/25/16 22:00 12/25/16 21:59 Ondansetron HCl (Zofran Inj) 4 mg Q6H PRN IV 11/25/16 22:00 12/25/16 21:59 11/26/16 09:15 4 MG Tramadol HCl (Ultram Tab) 100 mg Q4H PRN PO 11/25/16 22:00 12/25/16 21:59 11/28/16 16:21 100 MG Tramadol HCl (Ultram Tab) 50 mg Q4H PRN PO 11/25/16 22:00 12/25/16 21:59 Morphine Sulfate (MoRPHine SULFATE INJ) 2 mg Q2H PRN IV 11/25/16 22:00 12/09/16 21:59 11/26/16 01:10 2 MG Morphine Sulfate (MoRPHine SULFATE INJ) 4 mg Q2H PRN IV 11/25/16 22:00 12/09/16 21:59 Olanzapine (Zyprexa Tab) 5 mg HS PO 11/26/16 21:00 12/26/16 20:59 11/27/16 20:36 5 MG Acetaminophen (Tylenol Tab) 1,000 mg BID PO 11/26/16 11:00 12/26/16 10:59 11/28/16 08:57 1,000 MG Senna (Senokot Tab) 17.2 mg QAM PO 11/26/16 10:00 12/26/16 09:59 11/28/16 08:55 17.2 MG Celecoxib (CeleBREX CAP) 100 mg BID PO 11/27/16 21:00 12/27/16 20:59 11/28/16 08:53 100 MG (Carlota Andrews PA-C) Objective Vital Signs Date Time Temp Pulse Resp B/P (MAP) Pulse Ox O2 Delivery O2 Flow Rate FiO2 11/28/16 15:03 37.0 72 16 107/68 (81) 95 Room Air 11/28/16 12:00 Room Air 11/28/16 07:45 Room Air 11/28/16 07:40 Room Air 11/28/16 07:36 36.9 72 16 117/77 (90) 95 Room Air 11/28/16 00:35 Room Air 11/27/16 22:48 36.9 76 16 129/74 (92) 97 Room Air (Carlota Andrews, PA-C) Physical Exam General Appearance: WD/WN, no apparent distress, + mild distress (mildly uncomfortable appearing due to pain) Eyes: sclerae normal ENT: hearing grossly normal Neck: supple, no JVD, trachea midline Respiratory/Chest: lungs clear, normal breath sounds, no respiratory distress, no accessory muscle use Cardiovascular: regular rate, rhythm, no gallop, no murmur Abdomen: normal bowel sounds, non tender, soft Extremities: no pedal edema, no calf tenderness Neurologic/Psychiatric: alert, oriented x 3 Skin: normal color, warm/dry (Carlota Andrews, PA-C) Laboratory Results Last 24 Hours Test 11/28/16 10:49 Sodium Level 142 mmol/L Potassium Level 3.7 mmol/L Chloride Level 106 mmol/L Carbon Dioxide Level 29 mmol/L Anion Gap 7.0 mmol/L Blood Urea Nitrogen 6 mg/dl Creatinine 0.50 mg/dl Est Creatinine Clear Calc Drug Dose 100.7 ml/min Estimated GFR () 112.9 Estimated GFR (Non- 97.4 BUN/Creatinine Ratio 12.0 Random Glucose 103 mg/dl Calcium Level 8.0 mg/dl Total Bilirubin 0.5 mg/dl Aspartate Amino Transf (AST/SGOT) 17 U/L Alanine Aminotransferase (ALT/SGPT) 36 U/L Alkaline Phosphatase 275 U/L Total Protein 6.1 gm/dl Albumin 2.5 gm/dl Globulin 3.6 gm/dl Albumin/Globulin Ratio 0.7 Vitamin B12 Level 1940 pg/mL 25-Hydroxy Vitamin D Total 27.4 ng/ml Thyroid Stimulating Hormone (TSH) 0.921 uIu/ml (Carlota Andrews, PA-C) Assessment and Plan 71 F with fall and left pelvic fracture poa, cannot ambularte due to pain Left Pelvic Fx 2/2 Fall: - Pelvic XR - image and report reviewed - Nondisplaced fracture within the medial left pubic bones. No definite fracture within the left femur. - Pain management with Celebrex, Tylenol, and Tramadol -- 1-2 tablets of Tramadol Q4H PRN - has been utilizing 2 tablets Urinary Retention: - Patient noted to hold urine and varying bladder scan results revealing retention and Corona was placed. Corona D/C'd on 11/28 - Started Senna for constipation as may be contributing to retention. Vitamin D Deficiency: - Mildly decreased and will start supplementation Intellectual Disability/Psychosis: - Zyprexa 5 mg HS for behavioral symptoms Disposition: [facility] today vs tomorrow Discharge planning: rehab hospital (Carlota Andrews, CELESTINO-C) Attending Attestation & Admission Note: Pt seen/examined, chart reviewed, and care plan d/w CELESTINO Andrews. I agree w/ the stovall components of her documentation. Pt did not void post corona removal and thus needed I/O cath for such. Pt w/ pelvic pain but o/w no other complaints. VSS no fever gen - nad heart - RRR lungs - CTA b/l abd - soft, NT A/P: 1. pelvic fractures 2. elevated alk phos level 3. urinary retention requiring corona catheter check vit D, TSH due to #2 pain control for #1 send u/a and urine cx to ensure no UTI contributing to #3 patient's employment case manager, Alondra, will need to be notified to arrange securing clothes for patient once released to [facility] hopefully to [facility] in [place] G[place] MD (Ramez Garcia MD)
[2016-11-28] MEDS: OLANZAPINE 5 MG TAB PO SCH (21:16)
[2016-11-28 23:13] VITALS: BP 113/74; PULSE 79; TEMP 36.4; O2SAT 98
[2016-11-29 07:50] VITALS: BP 118/76; PULSE 80; TEMP 36.8; O2SAT 97
[2016-11-29 07:53] VITALS: O2SAT 97
[2016-11-29] MEDS: TRAMADOL HCL 50 MG TAB PO PRN ×2 (08:17→13:08)
[2016-11-29] MEDS: SENNA 8.6 MG TAB PO SCH (08:17)
[2016-11-29] MEDS: CeleBREX 100 MG CAP PO SCH (08:18)
[2016-11-29] MEDS: ACETAMINOPHEN 500 MG TAB PO SCH (08:18)
[2016-11-29 11:32] LABS: URINE APPEARANCE CLEAR (CLEAR); URINE BILIRUBIN NEG (NEG); URINE COLOR YELLOW; URINE NITRITE NEG (NEG); URINE SPECIFIC GRAVITY 1.007 (1.000-1.030); UROBILINOGEN NEG (NEG)
[2016-11-29 11:43] LABS: MANUAL MICROSCOPIC REQUIRED? NO; REVIEW REQ? NO
[2016-11-29 14:01] VITALS: BP 118/76; PULSE 80; TEMP 36.8; O2SAT 97
--- NOTE | 2016-11-29 15:56 | Discharge Summary ---
Discharge Summary Date of Service Nov 29, 2016. (Carlota Andrews PA-C) Discharge Summary Admission Date: Nov 25, 2016 at 21:56 Discharge Date: Nov 28, 2016 Discharge Disposition: Rehab Principal Diagnosis: L Pelvic Fracture due to Mechanical Fall and Urinary Retention Problems/Secondary Diagnoses: 1. Intellectual Disability/Psychosis 2. Orofacial Dyskinesia Procedures: 1. PELVIS 1 OR 2 VIEW ROUTINE, LEFT FEMUR 2 VIEWS ROUTINE FINDINGS: Nondisplaced fracture within the medial aspect of the left pubic bones. The sacrum appears intact. No additional fractures identified within the pelvis, hips, left femur. Mild osteoarthritis within the bilateral hips. Lucency overlying the intertrochanteric region of the left femur appears to represent a skin fold. IMPRESSION: Nondisplaced fracture within the medial left pubic bones. No definite fracture within the left femur. 2. LUMBAR SPINE 5 VIEWS FINDINGS: There is no fracture. No subluxation. Mild disc space narrowing at L5-S1. Moderate facet degenerative changes within the lower lumbar spine. IMPRESSION: No fracture or subluxation within the lumbar spine. 3. CT OF THE HEAD WITHOUT CONTRAST FINDINGS: No acute intracranial hemorrhage, midline shift or mass effect is present. Brain volume is normal for age. The exam is mildly compromised by motion artifact. Ventricular system is normal. The basilar cisterns are patent. There are no extra axial collections. There are no findings to suggest acute dural sinus thrombosis or acute territorial infarct. There are no calvarial fractures. IMPRESSION: 1. No acute intracranial findings. 2. No calvarial fracture. Consultations: 1. PT/OT (Carlota Andrews PA-C) Problems/Secondary Diagnoses: elevated alkaline phosphatase - uncertain cause - outpatient work-up needed (Ramez Garcia MD) Medication Reconciliation New Medications: Cholecalciferol (Vitamin D3) 1,000 Inter.unit Tab 1 TAB PO DAILY for 30 Days, #30 TAB Acetaminophen (Sb Non-Aspirin Extra Stre) 500 Mg Tab 1000 MG PO BID for 14 Days, #56 TAB Celecoxib (Celebrex) 100 Mg Cap 100 MG PO BID for 14 Days, #28 CAP Senna (Senna Lax) 8.6 Mg Tab 17.2 MG PO QAM for 14 Days, #28 TAB Tramadol HCl (Tramadol HCl) 50 Mg Tab 50 MG PO Q4H PRN for Pain for 3 Days, #12 TAB May take two tablets Q4H for severe pain Continued Medications: Olanzapine (Zyprexa) 5 Mg Tab 5 MG PO HS, TAB Discharge Exam Review of Systems: Constitutional: No fever, No chills Eyes: No worsening of vision ENT: No nasal symptoms, No sore throat, No trouble swallowing Respiratory: No cough, No sputum, No wheezing, No shortness of breath Cardiovascular: No chest pain Abdomen: + constipation (chronic), No pain, No nausea, No vomiting, No diarrhea Musculoskeletal: + joint pain (L pelvic region), No swelling, No calf pain Genitourinary - Female: + urinary retention, No dysuria Neurologic: No weakness, No numbness/tingling Hematologic / Lymphatic: No abnormal bleeding/bruising, No clotting problems Integumentary: No rash Physical Exam: General Appearance: no apparent distress, + thin, + pertinent finding ( disheveled) Eyes: sclerae normal ENT: hearing grossly normal, pharynx normal Neck: supple, no JVD, trachea midline Respiratory/Chest: lungs clear, normal breath sounds, no respiratory distress, no accessory muscle use Cardiovascular: regular rate, rhythm, no gallop, no murmur Abdomen / GI: normal bowel sounds, non tender, soft, + distended (mildly distended in suprapubic region - nontender) Extremities: no pedal edema Neurologic/Psychiatric: alert, oriented x 3 Skin: normal color, warm/dry (Carlota Andrews, ALPHONSO) Hospital Course ADMISSION: The patient is a 71-year-old female who presents to the emergency Department via BLS after reporting slipping and falling at home 9 days prior to arrival, in which she landed on her left buttock and then 3 days later developed the first onset of left groin pain, which has continually worsened since that time. Any time she attempts to bear weight she has severe pain and is unable to walk. The patient lives alone, and a kitchen and bath designer who visited her today advised she go to the emergency department for assessment. The patient reports poor oral intake since the fall due to having no appetite. HOSPITAL COURSE: Ms. Duff was admitted for a L non-displaced pelvic fx due to mechanical fall that occurred approx. 9 days prior to admission. Due to difficulty ambulating she was admitted and evaluated by PT/OT for rehab. She lives alone and has no family/friend support. Has assigned employment evaluator/case manager, Alondra. Pain has been adequately controlled with Celebrex, Tylenol, and Tramadol. Noted to be mildly Vitamin D deficient and supplementation initiated. During admission , patient noted to be retaining urine and Corona catheter was placed. This was D/ C'd on 11/28 and patient continued to have retention and is receiving intermittent straight catheterization. UA obtained and unremarkable with culture pending. Reports only one BM that was not her normal amount and is on Senna. Possible constipation vs Zyprexa side effect? Do not suspect this is related to pelvic fx. Recommend outpatient urology consultation in next few days. Discussed with patient who prefers intermittent catheterization over Corona insertion. Prior to admission, reporting she normally urinates 3-4 times a day but can go only 1-2 times a day. Patient is optimal for discharge to [facility]. Total Time Spent: Greater than 30 minutes This includes examination of the patient, discharge planning, medication reconciliation, and communication with other providers. (Carlota Andrews, PA-C) Attending Discharge Note & Attestation: Pt seen/examined, chart reviewed, care plan d/w CELESTINO Andrews on day of discharge. I agree w/ the stovall components of her discharge summary. 71yo female with history of intellectual disability and psychosis who suffered a fall leading to a pelvic fracture. This was treated nonoperatively with pain medications. Seen by PT/OT and inpatient rehab was recommended. She will transfer [facility] for such. The only other issue encountered while here was that of urinary retention. She had marked urinary retention with volumes of 500-1000cc. Despite these volumes she had no sensation to void. She oddly reported no prior history of urinary troubles. There was no evidence of UTI while hospitalized. LE motor exam was normal. She was given the option of intermittent catheterization 3-4x's daily vs corona; she opted for the former. She will need outpatient urological work-up for this within 1-2 weeks. Discharge exam: gen - nad heart - RRR lungs - CTA b/l abd - soft, NT, ND, BS+ ext - no edema neuro - strength 5/5 x 4 extremities skin - no sacral dimples or flavio of hair on sacral region Incidental note was made of an isolated alkaline phosphatase level. This will need repeat in the outpatient setting as well. TSH was normal and vitamin D level was minimally depressed. Ramez Garcia MD (Ramez Garcia MD) Discharge Instructions Please refer to the electronic Patient Visit Report (Discharge Instructions) for additional information. (Carlota Andrews, KULDIPC) Additional Copies To Cyndee Chris CRNP; [facility]
== END 2016-11-29 16:10 | DRG 536 ==
LOC: EDBD 14:21 → C.EDA 14:23 → C.MSN 21:56 → ENRESERV 22:12
PROVIDERS: ADMIT Hospitalist; ATTEND Internal Medicine
DX: S32.592A Other specified fracture of left pubis, initial encounter for closed fracture (principal); W01.0XXA Fall on same level from slipping, tripping and stumbling without subsequent striking against object, initial encounter; Y92.009 Unspecified place in unspecified non-institutional (private) residence as the place of occurrence of the external cause; R33.9 Retention of urine, unspecified; E83.39 Other disorders of phosphorus metabolism; E55.9 Vitamin D deficiency, unspecified; K59.00 Constipation, unspecified; T43.595A Adverse effect of other antipsychotics and neuroleptics, initial encounter; F79 Unspecified intellectual disabilities; F29 Unspecified psychosis not due to a substance or known physiological condition; Z87.891 Personal history of nicotine dependence; Z79.899 Other long term (current) drug therapy

== ENCOUNTER → 2016-12-09 | Outpatient (CLI) | payer OTHER ==
[~2016-12-09] MED LIST: ACET-24 PO; CLB100 PO; OLAN1TAB9 PO; SNK PO; ULT50X PO; VTMD1000 PO
--- NOTE | 2016-12-09 11:10 | DIAGNOSTIC IMAGING REPORT ---
CT bony pelvis PELVIS NO IV/ORAL CONT (CT) CLINICAL HISTORY: LEFT PELVIC FRACTURE TECHNIQUE: Transaxial acquisition with multi axial reformatted images. COMPARISON STUDY: Pelvis dated 11/25/2016 FINDINGS: Comminuted fracture of the left symphysis pubis. Considerable bony fragmentation are in moderate degenerative change of the hips bilaterally. Vertical sacral fractures bilaterally. These are considered nondisplaced. Sacroiliac joints are symmetric. The lateral aspects of the iliac wings are intact. Nondisplaced fractures of the lateral transverse processes of L5. No evidence for significant compromise of the spinal canal or sacral foramina bowel pattern is unremarkable. Linares catheter is identified within the bladder. IMPRESSION: 1. Comminuted fracture left symphysis pubis. 2. Vertical Cortical fractures of the sacral wings bilaterally. 3. Nondisplaced cortical fractures lateral transverse processes of L5. 4. Moderate degenerative change of the hips bilaterally with no acute bony abnormality at those sites Electronically signed by: Maikel Rahman M.D. 12/09/2016 11:09 AM Dictated Date/Time: 12/09/2016 10:58 AM
== END | disposition home or self-care (01) ==
LOC: C.CTS 10:39
PROVIDERS: ATTEND Physical Medicine & Rehabilitation
DX: S32.502A Unspecified fracture of left pubis, initial encounter for closed fracture (principal); X58.XXXA Exposure to other specified factors, initial encounter